=== PATIENT | female | born 1960 | race Hispanic/Latino ===

== ENCOUNTER → 2019-01-22 | Outpatient (CLI) | payer OTHER | END | disposition home or self-care (01) | LOC: RAH 12:57 | PROVIDERS: ATTEND Family Medicine | DX: I70.293 Other atherosclerosis of native arteries of extremities, bilateral legs (principal) | CPT/HCPCS: 93925 ==

== ENCOUNTER → 2019-05-22 | Outpatient (CLI) | payer OTHER | END | disposition home or self-care (01) | LOC: OIH 10:58 | PROVIDERS: ATTEND Family Medicine | DX: M17.11 Unilateral primary osteoarthritis, right knee (principal); M85.88 Other specified disorders of bone density and structure, other site; M25.461 Effusion, right knee | CPT/HCPCS: 73562 ==

== ENCOUNTER → 2019-06-21 | Outpatient (CLI) | payer OTHER ==
[~2019-06-21] MED LIST: CEPH500B PO; HYDR-4457 PO
== END | disposition home or self-care (01) ==
LOC: OIH 13:02
PROVIDERS: ATTEND Family Medicine
DX: S82.61XA Displaced fracture of lateral malleolus of right fibula, initial encounter for closed fracture (principal); M79.89 Other specified soft tissue disorders; X58.XXXA Exposure to other specified factors, initial encounter; Y93.89 Activity, other specified; Y92.89 Other specified places as the place of occurrence of the external cause; Y99.8 Other external cause status
CPT/HCPCS: 73610

== ENCOUNTER 2019-06-26 05:33 | Day surgery (SDC) | payer OTHER ==
[2019-06-25 11:16] LABS: BASOPHILS % (AUTO) 0.9 % (0.0-5.0); EOSINOPHILS % (AUTO) 3.1 % (0.0-8.0); LYMPHOCYTES % (AUTO) 19.3 % (21.0-51.0); MEAN CORPUSCULAR HEMOGLOBIN 31.7 pg (27.0-33.0); MEAN CORPUSCULAR HGB CONC 33.6 g/dL (32.0-36.0); MEAN CORPUSCULAR VOLUME 94.3 fL (79-99); NEUTROPHILS % (AUTO) 71.7 % (40.0-77.0); PLATELET COUNT (AUTO) 196 K/uL (130-400); RED BLOOD CELL COUNT(AUTO) 3.61 MIL/uL (4.00-5.50); RED CELL DISTRIBUTION WIDTH 15.7 % (11.0-15.5); WHITE BLOOD COUNT (AUTO) 7.4 K/uL (4.8-10.8)
[2019-06-25 11:26] LABS: POTASSIUM 5.4 mmol/L (3.5-5.1)
--- NOTE | 2019-06-25 16:12 | NUR ---
labs abnormal labs reported to dr. yanez , further orders given and will be carried out
[~2019-06-26] VITALS: Ht 162.6 cm; Wt 58.9 kg
[2019-06-26] VITALS (16 sets, daily range): BP systolic 133–169; BP diastolic 68–90
[2019-06-26] MEDS: CEFAZOLIN SODIUM 1 GM VIAL IVP SCH ×2 (06:00→08:05)
[2019-06-26] MEDS ORDERED: SODIUM CHLORIDE 0.9% 1000ML 1,000 ML IV ONE (06:55)
[2019-06-26] MEDS ORDERED: CEFAZOLIN SODIUM 1 GM VIAL ONE (07:11)
[2019-06-26] MEDS ORDERED: ROCURONIUM 10MG/1ML SYR 10 MG/ML ML ONE (07:27)
[2019-06-26] MEDS ORDERED: MIDAZOLAM HCL 1 MG/ML 2ML VIAL ONE (07:27)
[2019-06-26] MEDS ORDERED: LIDOCAINE PF 2% 5ML ABBOJECT ONE (07:27)
[2019-06-26] MEDS ORDERED: FENTANYL CITRATE PF 50 MCG/1 ML 2ML VIAL ONE ×2 (07:27→09:24)
[2019-06-26] MEDS ORDERED: PROPOFOL 10 MG/ML 20ML VIAL IV ONE (07:27)
[2019-06-26] MEDS ORDERED: EPINEPHRINE 1 MG/ML AMPULE ONE (07:29)
[2019-06-26] MEDS ORDERED: ALBUMIN (HUMAN) 5% 250 ML IV ONE (07:34)
--- NOTE | 2019-06-26 07:34 | NUR ---
POTENTIAL FOR INFECTION: SHAVED RIGHT LOWER LEG / ANKLE PER CHANELL ROBERSON, FOLLOWED BY WIPING WITH TARAS: 2% CHLORHEXIDINE GLUCONATE PATIENTS PRE-OP SKIN PREP.
[2019-06-26] MEDS ORDERED: EPHEDRINE SULFATE 50 MG/ML AMPULE ONE (09:12)
[2019-06-26] MEDS ORDERED: GLYCOPYRROLATE 1 MG/5 ML SYRINGE ONE (09:12)
[2019-06-26] MEDS ORDERED: ONDANSETRON HCL 4 MG/2 ML VIAL ONE (09:12)
[2019-06-26] MEDS ORDERED: NEOSTIGMINE 5MG/5ML SYR IV ONE (09:12)
[2019-06-26] MEDS ORDERED: HYDR-4457 PO (09:47)
[2019-06-26] MEDS ORDERED: CEPH500B PO (09:47)
[2019-06-26] MEDS ORDERED: METOPROLOL TARTRATE 1 MG/ML 5ML VIAL IV ONE (10:36)
--- NOTE | 2019-06-26 11:20 | NUR ---
PER MARU CASTELLANO RN/VO PT IS TO BE D/C WITH NO WEIGHT BEARING TO RT. L/EXT, KEEP DRESSING DRY AND INTACT TILL SEEN AT DR. OFFICE.
--- NOTE | 2019-06-26 11:52 | NUR ---
PT. GIVEN D/C INSTRUCTION, PT. LEFT VIA PERSONAL WHEELCHAIR, IN PVT CAR. PT HAD NO COMPLICATION PULSES INTACT TO L/ EXT.
== END 2019-06-26 11:30 | disposition home or self-care (01) ==
LOC: DAHIP 05:33 → DAH 05:33
PROVIDERS: ATTEND Orthopaedic Surgery
DX: S82.61XA Displaced fracture of lateral malleolus of right fibula, initial encounter for closed fracture (principal); E11.22 Type 2 diabetes mellitus with diabetic chronic kidney disease; N18.6 End stage renal disease; I50.9 Heart failure, unspecified; M81.0 Age-related osteoporosis without current pathological fracture; F32.9 Major depressive disorder, single episode, unspecified; J44.9 Chronic obstructive pulmonary disease, unspecified; E03.9 Hypothyroidism, unspecified; X58.XXXA Exposure to other specified factors, initial encounter; Y93.89 Activity, other specified; Y92.89 Other specified places as the place of occurrence of the external cause; Y99.8 Other external cause status; Z79.899 Other long term (current) drug therapy; Z90.49 Acquired absence of other specified parts of digestive tract; Z98.890 Other specified postprocedural states; Z83.3 Family history of diabetes mellitus; Z82.49 Family history of ischemic heart disease and other diseases of the circulatory system
CPT/HCPCS: 27792; 36415 ×2; 73610; 80048; 82948 ×2; 84132; 85025; 87641; A4215; A4221; A4222; A4223; A4649 ×2; A4663; A4930 ×2; A5120; C1713 ×3; C1776; J0171; J0690 ×2; J2001; J2250; J2405; J2704; J2710; J3010 ×2; J3490 ×3; J7030 ×2; P9045; Q4051; G0378

== ENCOUNTER → 2019-08-15 | Outpatient (CLI) | payer OTHER | END | disposition home or self-care (01) | LOC: RAH 09:26 | PROVIDERS: ATTEND Family Medicine | DX: Z12.31 Encounter for screening mammogram for malignant neoplasm of breast (principal) | CPT/HCPCS: 77067 ==

== ENCOUNTER 2020-09-14 00:26 | Emergency (ER) | payer OTHER | END 2020-09-14 05:53 | disposition home or self-care (01) | LOC: EDH 00:26 | DX: L89.319 Pressure ulcer of right buttock, unspecified stage (principal); E11.22 Type 2 diabetes mellitus with diabetic chronic kidney disease; N18.6 End stage renal disease ==